=== PATIENT | male | born 1960 | race Caucasian/White ===

== ENCOUNTER 2017-04-22 19:34 | Inpatient (IN) | payer SELFPAY ==
[~2017-04-22] VITALS: Ht 188 cm; Wt 75.2 kg
[2017-04-22 19:36] VITALS: BP 164/85; PULSE 80; RESP 16; TEMP 98.5; O2SAT 98
--- NOTE | 2017-04-22 20:12 | PD ---
HPI Chief Complaint: Psychiatric Symptoms Time Seen by Provider: 19:48 Travel History International Travel<30 days: No Contact w/Intl Traveler<30days: No Traveled to known affect area: No History of Present Illness HPI Patient is a 56-year-old male presenting voluntarily to the emergency department for psychiatric evaluation. Patient states she's been feeling more depressed for the last several weeks secondary to his brother passing away in February and another brother who is incarcerated. Patient states she's been feeling suicidal since yesterday. He reports 2 previous suicide attempts or overdose, once he took 100 aspirin tablets and another time he overdosed on his depression medication. He is not currently on any medications. He denies any hallucinations or homicidal ideations. There are no alleviating factors. Symptoms are exacerbated due to stressors. No Physical complaints at this time. PFSH Past Medical History Arthritis: Yes Asthma: Yes Bipolar Disorder: Yes Anxiety: Yes Depression: Yes Cardiovascular Problems: Yes (hx tumor ) Chest Pain: Yes COPD: Yes Hepatitis: Yes Hypertension: Yes Psychiatric: Yes (BIPOLAR) Tetanus Vaccination: Unknown Influenza Vaccination: No Past Surgical History Cardiac Surgery: Yes (TUMOR REMOVAL FROM HEART) Coronary Artery Bypass Graft: No Family History Family Myocardial Infarction: Yes (grandfather) Social History Alcohol Use: Yes Tobacco Use: Yes (1-1.5PPD) Substance Use: Yes (MARIJUANA) Allergies-Medications (Allergen,Severity, Reaction): Coded Allergies: acetaminophen (Unverified Allergy, Intermediate, SYNCOPY, 04/22/17) oxycodone (Unverified Allergy, Intermediate, SYNCOPY, 04/22/17) Reported Meds & Prescriptions Reported Meds & Active Scripts Active No Active Prescriptions or Reported Medications Review of Systems Except as stated in HPI: all other systems reviewed are Neg Psychiatric: Positive: Depression, Suicidal Ideations, No: Substance Abuse Physical Exam Narrative GENERAL: Well kept, well-nourished, well-developed alert male. Presenting in no acute distress. SKIN: Warm and dry. HEAD: Atraumatic. Normocephalic. EYES: Pupils equal and round. No scleral icterus. No injection or drainage. ENT: No nasal bleeding or discharge. Mucous membranes pink and moist. NECK: Trachea midline. No JVD. CARDIOVASCULAR: Regular rate and rhythm. RESPIRATORY: No accessory muscle use. Clear to auscultation. Breath sounds equal bilaterally. GASTROINTESTINAL: Abdomen soft, non-tender, nondistended. Hepatic and splenic margins not palpable. MUSCULOSKELETAL: Extremities without clubbing, cyanosis, or edema. No obvious deformities. NEUROLOGICAL: Awake and alert. No obvious cranial nerve deficits. Motor grossly within normal limits. Five out of 5 muscle strength in the arms and legs. Normal speech. PSYCHIATRIC: Depressed mood and affect; insight and judgment normal. Data Data Last Documented VS Vital Signs Date Time Temp Pulse Resp B/P (MAP) Pulse Ox O2 Delivery O2 Flow Rate FiO2 04/22/17 19:36 98.5 80 16 164/85 (111) 98 Orders Orders Complete Blood Count With Diff (04/22/17 19:48) Comprehensive Metabolic Panel (04/22/17 19:48) Thyroid Stimulating Hormone (04/22/17 19:48) Urinalysis - C+S If Indicated (04/22/17 19:48) Psych Screen (04/22/17 19:48) Drug Screen, Random Urine (04/22/17 19:48) Alcohol (Ethanol) (04/22/17 19:48) Salicylates (Aspirin) (04/22/17 19:48) Tylenol (Acetaminophen) (04/22/17 19:48) Labs Laboratory Tests Test 04/22/17 20:35 04/22/17 20:38 White Blood Count 11.6 TH/MM3 Red Blood Count 4.75 MIL/MM3 Hemoglobin 14.9 GM/DL Hematocrit 44.0 % Mean Corpuscular Volume 92.6 FL Mean Corpuscular Hemoglobin 31.3 PG Mean Corpuscular Hemoglobin Concent 33.8 % Red Cell Distribution Width 13.0 % Platelet Count 256 TH/MM3 Mean Platelet Volume 6.9 FL Neutrophils (%) (Auto) 68.8 % Lymphocytes (%) (Auto) 19.0 % Monocytes (%) (Auto) 9.7 % Eosinophils (%) (Auto) 1.6 % Basophils (%) (Auto) 0.9 % Neutrophils # (Auto) 8.0 TH/MM3 Lymphocytes # (Auto) 2.2 TH/MM3 Monocytes # (Auto) 1.1 TH/MM3 Eosinophils # (Auto) 0.2 TH/MM3 Basophils # (Auto) 0.1 TH/MM3 CBC Comment DIFF FINAL Differential Comment Blood Urea Nitrogen 17 MG/DL Creatinine 1.20 MG/DL Random Glucose 81 MG/DL Total Protein 8.2 GM/DL Albumin 4.2 GM/DL Calcium Level 9.2 MG/DL Alkaline Phosphatase 82 U/L Aspartate Amino Transf (AST/SGOT) 17 U/L Alanine Aminotransferase (ALT/SGPT) 19 U/L Total Bilirubin 0.9 MG/DL Sodium Level 135 MEQ/L Potassium Level 4.1 MEQ/L Chloride Level 99 MEQ/L Carbon Dioxide Level 27.5 MEQ/L Anion Gap 9 MEQ/L Estimat Glomerular Filtration Rate 63 ML/MIN Thyroid Stimulating Hormone 3rd Gen 1.750 uIU/ML Salicylates Level 2.6 MG/DL Acetaminophen Level LESS THAN 2.0 MCG/ML Ethyl Alcohol Level LESS THAN 3 MG/DL Urine Color ORANGE Urine Turbidity HAZY Urine pH 6.0 Urine Specific [place] 1.034 Urine Protein 30 mg/dL Urine Glucose (UA) NEG mg/dL Urine Ketones TRACE mg/dL Urine Occult Blood NEG Urine Nitrite NEG Urine Bilirubin NEG Urine Urobilinogen 4.0 MG/DL Urine Leukocyte Esterase NEG Urine RBC 8 /hpf Urine WBC 4 /hpf Urine Bacteria RARE /hpf Urine Hyaline Casts 46 /lpf Urine Mucus MANY /lpf Microscopic Urinalysis Comment CULT NOT INDICATED Urine Opiates Screen NEG Urine Barbiturates Screen NEG Urine Amphetamines Screen NEG Urine Benzodiazepines Screen NEG Urine Cocaine Screen NEG Urine Cannabinoids Screen NEG MDM Medical Decision Making Medical Screen Exam Complete: Yes Emergency Medical Condition: Yes Medical Record Reviewed: Yes Interpretation(s) Vital Signs Date Time Temp Pulse Resp B/P (MAP) Pulse Ox O2 Delivery O2 Flow Rate FiO2 04/22/17 19:36 98.5 80 16 164/85 (323) 98 Differential Diagnosis Depression versus suicidal ideations versus mood disorder versus substance abuse versus other Narrative Course Patient is a 56-year-old male presented voluntarily for psychiatric evaluation. Patient's vital signs are stable, he is well-appearing although depressed. Mental health screening discussed with the patient. Psychiatric screen ordered. Labs reviewed, no acute findings identified. Patient's medically cleared for psychiatric evaluation. Diagnosis Primary Impression: Medical clearance for psychiatric admission Scripts No Active Prescriptions or Reported Meds Condition: Stable Sheila Romero Apr 22, 2017 20:12
[2017-04-22 21:01] LABS: BASOPHIL # 0.1 TH/MM3 (0-0.2); BASOPHIL % 0.9 % (0.0-2.0); EOSINOPHIL # 0.2 TH/MM3 (0-0.4); EOSINOPHIL % 1.6 % (0.0-4.0); HEMOGLOBIN 14.9 GM/DL (13.0-17.0); LYMPHOCYTE # 2.2 TH/MM3 (1.0-4.8); MEAN CELL VOLUME 92.6 FL (80.0-100.0); MEAN CORPUSCULAR HEMOGLOBIN 31.3 PG (27.0-34.0); MEAN CORPUSCULAR HGB CONC 33.8 % (32.0-36.0); MEAN PLATELET VOLUME 6.9 FL (7.0-11.0); MONO % 9.7 % (0.0-8.0); MONOCYTE # 1.1 TH/MM3 (0-0.9); NEUT % 68.8 % (16.0-70.0); PLATELET COUNT 256 TH/MM3 (150-450); RED BLOOD COUNT 4.75 MIL/MM3 (4.50-5.90); WHITE BLOOD COUNT 11.6 TH/MM3 (4.0-11.0)
[2017-04-22 21:05] LABS: BLOOD, URINE NEG (NEG); GLUCOSE,URINE NEG (NEG); HYALINE CAST, URINE 46 /lpf (RARE); KETONE, URINE TRACE mg/dL (NEG); MUCUS URINE MANY /lpf (OCC); NITRITE,URINE NEG (NEG); URINE COLOR ORANGE (YELLW/STRAW); URINE LEUKOCYTE ESTERASE NEG (NEG)
[2017-04-22 21:07] LABS: BILIRUBIN, URINE NEG (NEG)
[2017-04-22 21:08] LABS: BACTERIA, URINE RARE /hpf
[2017-04-22 21:14] LABS: ACETAMINOPHEN LESS THAN 2.0 MCG/ML (10.0-30.0); ALBUMIN 4.2 GM/DL (3.4-5.0); ALT (GPT) 19 U/L (12-78); AST (GOT) 17 U/L (15-37); BICARBONATE 27.5 MEQ/L (21.0-32.0); BLOOD UREA NITROGEN 17 MG/DL (7-18); CALCIUM 9.2 MG/DL (8.5-10.1); CHLORIDE 99 MEQ/L (98-107); GLOMERULAR FILTRATION RATE 63 ML/MIN (>89); GLUCOSE,RANDOM 81 MG/DL (74-106); SODIUM (NA) 135 MEQ/L (136-145)
[2017-04-22 21:16] LABS: ALKALINE PHOSPHATASE 82 U/L (45-117); TOTAL BILIRUBIN ADULT 0.9 MG/DL (0.2-1.0); TOTAL PROTEIN 8.2 GM/DL (6.4-8.2)
[2017-04-23] VITALS (7 sets, daily range): BP systolic 107–159; BP diastolic 56–82; PULSE 52–69; RESP 18–20; TEMP 97.6–99.1; O2SAT 97–99
[2017-04-23] MEDS ORDERED: NICOTINE 21 MG/24 HR PATCH T-DERMAL ONE (15:00)
[2017-04-23] MEDS ORDERED: LORazepam 2 MG/ML VIAL IM PRN (22:45)
[2017-04-23] MEDS ORDERED: LORazepam 1 MG TAB PO PRN (22:45)
[2017-04-23] MEDS ORDERED: diphenhydrAMINE HCL 50 MG/ML VIAL - HS PRN IM (22:45)
[2017-04-23] MEDS ORDERED: MAGNESIUM HYDROXIDE SUSP 30 ML CUP PO PRN (22:45)
[2017-04-23] MEDS ORDERED: diphenhydrAMINE HCL 50 MG CAP - HS PRN PO (22:45)
[2017-04-23] MEDS ORDERED: ALUMINUM/MAGNESIUM/SIMETH 30 ML CUP PO PRN (22:45)
[2017-04-23] MEDS: REMOVE OLD NICOTINE PATCH T-DERMAL SCH (23:08)
[2017-04-24] MEDS: NICOTINE 21 MG/24 HR PATCH T-DERMAL SCH (09:00)
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
[2017-04-24 11:18] LABS: BICARBONATE 27.9 MEQ/L (21.0-32.0); BLOOD UREA NITROGEN 13 MG/DL (7-18); CALCIUM 9.1 MG/DL (8.5-10.1); CHLORIDE 103 MEQ/L (98-107); CREATININE 0.92 MG/DL (0.60-1.30); GLOMERULAR FILTRATION RATE 85 ML/MIN (>89); GLUCOSE,RANDOM 99 MG/DL (74-106); SODIUM (NA) 137 MEQ/L (136-145)
[2017-04-24 11:19] LABS: CHOLESTEROL 127 MG/DL (120-200)
[2017-04-24 11:21] LABS: CHOLESTEROL/ HDL RATIO 3.19 RATIO; HDL CHOLESTEROL 39.7 MG/DL (40.0-60.0); LDL CHOLESTEROL 69 MG/DL (0-99); TRIGLYCERIDES 93 MG/DL (42-150)
[2017-04-24 14:24] LABS: AUTOMATED NEUTROPHIL # 3.4 TH/MM3 (1.8-7.7); BASOPHIL # 0.1 TH/MM3 (0-0.2); BASOPHIL % 1.3 % (0.0-2.0); EOSINOPHIL # 0.1 TH/MM3 (0-0.4); EOSINOPHIL % 2.2 % (0.0-4.0); HEMATOCRIT 39.2 % (39.0-51.0); HEMOGLOBIN 13.6 GM/DL (13.0-17.0); LYMPH % 25.3 % (9.0-44.0); LYMPHOCYTE # 1.5 TH/MM3 (1.0-4.8); MEAN CELL VOLUME 92.6 FL (80.0-100.0); MEAN CORPUSCULAR HEMOGLOBIN 32.1 PG (27.0-34.0); MEAN CORPUSCULAR HGB CONC 34.6 % (32.0-36.0); MEAN PLATELET VOLUME 7.3 FL (7.0-11.0); MONO % 11.7 % (0.0-8.0); MONOCYTE # 0.7 TH/MM3 (0-0.9); NEUT % 59.5 % (16.0-70.0); PLATELET COUNT 205 TH/MM3 (150-450); RED BLOOD COUNT 4.23 MIL/MM3 (4.50-5.90); RED CELL DISTRIBUTION WIDTH 12.6 % (11.6-17.2); WHITE BLOOD COUNT 5.7 TH/MM3 (4.0-11.0)
[2017-04-24 17:25] LABS: HEMOGLOBIN A1C 5.4 % (4.3-6.0)
[2017-04-24] MEDS: lamoTRIgine 25 MG TAB PO SCH (20:33)
[2017-04-25 05:38] VITALS: BP 122/58; PULSE 60; RESP 16; TEMP 97.9; O2SAT 96
[2017-04-25] MEDS: NICOTINE 21 MG/24 HR PATCH T-DERMAL SCH (08:41)
--- NOTE | 2017-04-25 12:03 | HHI.PYPN ---
Subjective Chief Complaint: Depression, SI Remarks Patient seen and examined with nurse and nurse practitioner. Chart reviewed. Case discussed with nursing staff. Case discussed in treatment team. On my examination today, the patient reports ongoing low mood. He reports intermittent suicidal ideation. No reported urge to hurt himself on the inpatient psychiatric unit. No psychotic symptoms. Denies side effects from medication. No physical complaints. Review of Systems Except as stated in HPI: all other systems reviewed are Neg Mental Status Examination Appearance: Appropriate Consciousness: Alert Orientation: x4 Motor Activity: Other (no motor abnormalities noted.) Speech: Unremarkable Language: Adequate Fund of Knowledge: Adequate Attention and Concentration: Adequate Memory: Unremarkable Mood: Sad Affect: Sad Thought Process & Associations: Intact, Logical, Linear Thought Content: Appropriate Hallucination Type: None Delusion Type: None Suicidal Ideation: Yes (intermittent) Suicidal Plan: No Suicidal Intention: No (no urge to hurt self on inpatient unit) Homicidal Ideation: No Homicidal Plan: No Homicidal Intention: No Insight: Adequate Judgment: Adequate Mental Status Exam Remarks No visible rash Results Labs Labs reviewed. Vitals/IOs Vital Signs Date Time Temp Pulse Resp B/P (MAP) Pulse Ox O2 Delivery O2 Flow Rate FiO2 04/25/17 05:38 97.9 60 16 122/58 (79) 96 04/23/17 22:02 Room Air Intake and Output 04/25/17 04/25/17 04/26/17 08:00 16:00 00:00 Intake Total 240 ml Balance 240 ml Assessment & Plan Problem List: (1) Bipolar disorder, current episode depressed, severe, without psychotic features ICD Codes: F31.4 - Bipolar disorder, current episode depressed, severe, without psychotic features Assessment & Plan Add Latuda 40 mg with dinner with plans to titrate to effect for mood stabilization. R/B/A for this medication discussed with patient. Continue Lamictal as ordered with plans for ongoing slow titration. Patient wishes to continue Lamictal in hopes that it will provide adequate mood stabilization once titrated to adequate dose, and I have added the Latuda to try to obtain more rapid mood stabilization than is afforded by the slow titration schedule of Lamictal. Continue to monitor on the inpatient unit. Occupational therapy consult. Continue other medications and care as ordered. Justification for Cont. Inpt. Med changes. Monitoring for impairment in safety. Risk for decompensation in less restrictive environment. Discharge Planning Pending psychiatric stabilization Request HC Surrog/Guard Advoc?: No Dayton Villegas MD Apr 25, 2017 12:03
--- NOTE | 2017-04-25 16:23 | PD.TTN ---
Patient Problems 1. Discharge planning 2. Medication compliance 3. Knowledge deficit 4. Lack of coping skills Progress Toward Goals Provider Present: Dr. Selam Villegas Provider Input: 04/25/17 patient is started on Lamictal and medications are being titrated Psychiatric Counselors Present: Rocio Calabrese LCSW Psych Therapist Input: 04/25/17 met with to discuss goals of hospitalization and outpatient follow up- he elaborated on his needs of stabilization and not having housing he appears in need for support system and re-intrerated he can return to another state or can be referred to [facility] outpatient and homeless coalition, he appears very depressed and was encouraged to seek outpatient counseling once discharged Group Spec/RT/OT/DELUCA Present: Shauna Tai, ARMINDA Group Spec/RT/OT/DELUCA Input: 04/25/17 new to Rt Rocio Calabrese LCSW Apr 25, 2017 16:23
[2017-04-25] MEDS: LURASIDONE 40 MG TAB PO SCH (17:43)
[2017-04-25 18:27] VITALS: BP 138/67; PULSE 54; RESP 17; TEMP 98.3; O2SAT 100
[2017-04-25] MEDS: REMOVE OLD NICOTINE PATCH T-DERMAL SCH (21:00)
[2017-04-25] MEDS: lamoTRIgine 25 MG TAB PO SCH (21:13)
[2017-04-26 06:00] VITALS: BP 115/57; PULSE 53; RESP 16; TEMP 98.1; O2SAT 97
[2017-04-26] MEDS: NICOTINE 21 MG/24 HR PATCH T-DERMAL SCH (08:48)
--- NOTE | 2017-04-26 11:25 | HHI.PYPN ---
Subjective Chief Complaint: Depression, SI Remarks Patient seen and examined with nurse and nurse practitioner. Chart reviewed. Case discussed with nursing staff. No behavioral issues overnight. Latuda was not administered yesterday afternoon as EKG had not been completed. On my examination today, the patient remains depressed. He does not verbalize any suicidal ideation. He is discussing discharge planning options with the counselor. No side effects from Lamictal. No physical complaints. Review of Systems Except as stated in HPI: all other systems reviewed are Neg Mental Status Examination Appearance: Appropriate Consciousness: Alert Orientation: x4 Motor Activity: Other (no motoric abnormalities noted) Speech: Unremarkable Language: Adequate Fund of Knowledge: Adequate Attention and Concentration: Adequate Memory: Unremarkable Mood: Other (reports mood remains depressed) Affect: Appropriate (fairly full and reactive today) Thought Process & Associations: Intact, Logical, Linear Thought Content: Appropriate Hallucination Type: None Delusion Type: None Suicidal Ideation: No Suicidal Plan: No Suicidal Intention: No Homicidal Ideation: No Homicidal Plan: No Homicidal Intention: No Insight: Adequate Judgment: Adequate Mental Status Exam Remarks No visible rash Results Labs Labs reviewed. No new labs. EKG read as sinus bradycardia with a QTcH of 401 ms, not prolonged. Vitals/IOs Vital Signs Date Time Temp Pulse Resp B/P (MAP) Pulse Ox O2 Delivery O2 Flow Rate FiO2 04/26/17 06:00 98.1 53 16 115/57 (76) 97 04/23/17 22:02 Room Air Assessment & Plan Problem List: (1) Bipolar disorder, current episode depressed, severe, without psychotic features ICD Codes: F31.4 - Bipolar disorder, current episode depressed, severe, without psychotic features Assessment & Plan Initiate Latuda this afternoon with dinner. Continue Lamictal as ordered with plans for ongoing slow titration. Continue to monitor on the inpatient unit. Continue other medications and care as ordered. Justification for Cont. Inpt. Monitoring for impairment in safety, none noted. Ongoing medication adjustments. Discharge Planning Anticipate discharge by the end of the week. Case discussed with counselor. Request HC Surrog/Guard Advoc?: No Dayton Villegas MD Apr 26, 2017 11:25
[2017-04-26 16:45] VITALS: BP 176/84; PULSE 61; RESP 18; TEMP 97.8; O2SAT 100
[2017-04-26] MEDS: LURASIDONE 40 MG TAB PO SCH (17:37)
[2017-04-26] MEDS: REMOVE OLD NICOTINE PATCH T-DERMAL SCH (21:00)
[2017-04-26] MEDS: lamoTRIgine 25 MG TAB PO SCH (21:21)
--- NOTE | 2017-04-26 21:50 | EKG ---
Date Performed: 04/25/2017 Time Performed: 17:39:01 PTAGE: 56 years EKG: SINUS BRADYCARDIA MODERATE T-WAVE ABNORMALITY, CONSIDER INFERIOR ISCHEMIA ABNORMAL ECG PREVIOUS TRACING : 01/19/2016 18.24 Since the prior tracing, there has been no significant lang DOCTOR: Bala Still Interpretating Date/Time 04/26/2017 21:48:57
[2017-04-27 05:52] VITALS: BP 131/68; PULSE 50; RESP 16; TEMP 98; O2SAT 97
[2017-04-27] MEDS: NICOTINE 21 MG/24 HR PATCH T-DERMAL SCH (09:05)
--- NOTE | 2017-04-27 12:27 | HHI.PYPN ---
Subjective Chief Complaint: Depression, SI Remarks Patient seen and examined with nurse. Chart reviewed. Case discussed with nursing staff. On my examination today, the patient says that he remains depressed. No SI voiced. Hasn't noticed any benefit from addition of Latuda yet but denies any side effects. He did note some "spots" on his forearms, but when I examine his forearms, he cannot find the spots he had seen earlier, and I can appreciate no rash whatsoever. No other physical complaints. Agreeable to ongoing titration of Latuda. Review of Systems Except as stated in HPI: all other systems reviewed are Neg Mental Status Examination Appearance: Appropriate Consciousness: Alert Orientation: x4 Motor Activity: Other (no hand tremor, no cogwheeling, no other motor abnormalities noted.) Speech: Unremarkable Language: Adequate Fund of Knowledge: Adequate Attention and Concentration: Adequate Memory: Unremarkable Mood: Other (reports remains depressed) Affect: Appropriate (full and reactive) Thought Process & Associations: Intact, Logical, Linear Thought Content: Appropriate Hallucination Type: None Delusion Type: None Suicidal Ideation: No Suicidal Plan: No Suicidal Intention: No Homicidal Ideation: No Homicidal Plan: No Homicidal Intention: No Insight: Adequate Judgment: Adequate Mental Status Exam Remarks No visible rash. No rash on forearms. Results Labs Labs reviewed. No new labs. Vitals/IOs Vital Signs Date Time Temp Pulse Resp B/P (MAP) Pulse Ox O2 Delivery O2 Flow Rate FiO2 04/27/17 05:52 98.0 50 16 131/68 (89) 97 04/23/17 22:02 Room Air Assessment & Plan Problem List: (1) Bipolar disorder, current episode depressed, severe, without psychotic features ICD Codes: F31.4 - Bipolar disorder, current episode depressed, severe, without psychotic features Assessment & Plan Titrate Latuda to 60 mg daily with dinner for additional mood stabilization. Continue Lamictal as ordered with plans for ongoing slow titration. Continue to monitor on the inpatient unit. I encourage participation in groups and unit activities. Continue other care as ordered. Justification for Cont. Inpt. Medication changes. Risk for decompensation in less restrictive environment. Discharge Planning Pending psychiatric stabilization. Request HC Surrog/Guard Advoc?: No Dayton Villegas MD Apr 27, 2017 12:27
[2017-04-27] MEDS ORDERED: PILL SPLITTER OTHER PRN (12:30)
[2017-04-27 17:14] VITALS: BP 138/80; PULSE 57; RESP 16; TEMP 98.3; O2SAT 99
[2017-04-27] MEDS: LURASIDONE 40 MG TAB PO SCH (17:47)
[2017-04-27] MEDS: lamoTRIgine 25 MG TAB PO SCH (20:20)
[2017-04-27] MEDS: REMOVE OLD NICOTINE PATCH T-DERMAL SCH (20:20)
[2017-04-28 06:00] VITALS: BP 123/64; PULSE 68; RESP 16; TEMP 97.2; O2SAT 98
[2017-04-28] MEDS: NICOTINE 21 MG/24 HR PATCH T-DERMAL SCH (10:28)
--- NOTE | 2017-04-28 12:18 | HHI.PYPN ---
Subjective Chief Complaint: Depression, SI Remarks Patient seen and examined with nurse. Chart reviewed. Case discussed with nursing staff. Case discussed in treatment team. On my examination today, the patient complains of some restless legs at night and wonders if this might be due to the titration of Latuda. We discuss possible options for management of this issue, including switching to a different psychotropic, but the patient wishes to continue with the Latuda for now. Remains depressed. Continues to endorse vague suicidal ideation without specific plan or intent. No reported urge to hurt himself on the inpatient psychiatric unit. No other side effects from medications. No complaints of rash. Does complain of some chronic musculoskeletal pain and requests ibuprofen. No other physical complaints. Review of Systems Except as stated in HPI: all other systems reviewed are Neg Mental Status Examination Appearance: Appropriate Consciousness: Alert Orientation: x4 Motor Activity: Other (no motor abnormalities noted.) Speech: Unremarkable Language: Adequate Fund of Knowledge: Adequate Attention and Concentration: Adequate Memory: Unremarkable Mood: Other (remains somewhat depressed) Affect: Appropriate Thought Process & Associations: Intact, Logical, Linear Thought Content: Appropriate Hallucination Type: None Delusion Type: None Suicidal Ideation: Yes (vague) Suicidal Plan: No Suicidal Intention: No (no reported urge to hurt himself on the inpatient psychiatric unit) Homicidal Ideation: No Homicidal Plan: No Homicidal Intention: No Insight: Adequate Judgment: Adequate Mental Status Exam Remarks No visible rash Results Labs Labs reviewed. No new labs. Vitals/IOs Vital Signs Date Time Temp Pulse Resp B/P (MAP) Pulse Ox O2 Delivery O2 Flow Rate FiO2 04/28/17 06:00 97.2 68 16 123/64 (83) 98 Intake and Output 04/28/17 04/28/17 04/28/17 07:59 15:59 23:59 Intake Total 240 ml 240 ml Balance 240 ml 240 ml Assessment & Plan Problem List: (1) Bipolar disorder, current episode depressed, severe, without psychotic features ICD Codes: F31.4 - Bipolar disorder, current episode depressed, severe, without psychotic features Assessment & Plan Titrate Lamictal over the weekend to 50 mg at bedtime for mood stabilization. Continue Latuda as ordered per patient preference. Ibuprofen as needed added. Continue to monitor on the inpatient unit. Continue other medications and care as ordered. Justification for Cont. Inpt. Med changes. Risk for decompensation in less restrictive environment. Monitoring for impairment in safety, none noted. Discharge Planning Pending psychiatric stabilization. Request HC Surrog/Guard Advoc?: No Dayton Villegas MD Apr 28, 2017 12:18
[2017-04-28] MEDS ORDERED: PADIMATE (CHAPSTICK) 4.5 GM TUBE TOPICAL PRN (14:30)
--- NOTE | 2017-04-28 14:38 | PD.TTN ---
Patient Problems 1. Discharge planning 2. Medication compliance 3. Knowledge deficit 4. Lack of coping skills Progress Toward Goals Provider Present: Dr. Selam Villegas Provider Input: 04/28/17 anticipated discharge Monday04/25/17 patient is started on Lamictal and medications are being titrated Psychiatric Counselors Present: Rocio Calabrese LCSW Psych Therapist Input: 04/28/17 patient is still stating he is unsure where to go and what to do but is aware he needs to work on his stabiliy - he is considering to return home and asked counselor to call his brother in [place], left a Vm with brother at [phone] 04/25/17 met with to discuss goals of hospitalization and outpatient follow up- he elaborated on his needs of stabilization and not having housing he appears in need for support system and re-intrerated he can return to another state or can be referred to [facility] outpatient and homeless coalition, he appears very depressed and was encouraged to seek outpatient counseling once discharged Group Spec/RT/OT/DELUCA Present: Shauna Tai, GPS Group Spec/RT/OT/DELUCA Input: 04/28/17patient keeps to self and does not attend groups 04/25/17 new to Rt Rocio Calabrese LCSW Apr 28, 2017 14:38
[2017-04-28] MEDS: IBUPROFEN 600 MG TAB PO PRN (14:56)
[2017-04-28 18:00] VITALS: BP 176/86; PULSE 66; RESP 15; TEMP 97.4; O2SAT 100
[2017-04-28] MEDS: LURASIDONE 40 MG TAB PO SCH (18:39)
[2017-04-28] MEDS: REMOVE OLD NICOTINE PATCH T-DERMAL SCH (21:00)
[2017-04-28] MEDS: lamoTRIgine 25 MG TAB PO SCH (23:00)
[2017-04-28] MEDS: hydrOXYzine HCL 50 MG TAB PO PRN (23:02)
[2017-04-29 06:20] VITALS: BP 123/63; PULSE 51; RESP 18; TEMP 97.6; O2SAT 96
[2017-04-29] MEDS: NICOTINE 21 MG/24 HR PATCH T-DERMAL SCH (09:17)
--- NOTE | 2017-04-29 13:42 | HHI.PYPN ---
Subjective Chief Complaint: Depression, SI Remarks Patient was seen and case discussed with nursing. Patient describes his mood today as a 6 out of 10. He knows chronic suicidal ideation for the past number of years and his last suicide attempt 2006. He is somewhat superficial and vague concerning his suicidal thoughts today. He describes knowledge many plans over the years that he denies intense though admits to ideation. He is tolerating his medications well. Denies any auditory visual hallucinations. Continues to complain of "restless legs" Mental Status Examination Appearance: Appropriate Consciousness: Alert Orientation: x4 Motor Activity: Other (no motor abnormalities noted.) Speech: Unremarkable Language: Adequate Fund of Knowledge: Adequate Attention and Concentration: Adequate Memory: Unremarkable Mood: Other (remains somewhat depressed) Affect: Appropriate Thought Process & Associations: Intact, Logical, Linear Thought Content: Appropriate Hallucination Type: None Delusion Type: None Suicidal Ideation: Yes (vague) Suicidal Plan: No Suicidal Intention: No (no reported urge to hurt himself on the inpatient psychiatric unit) Homicidal Ideation: No Homicidal Plan: No Homicidal Intention: No Insight: Adequate Judgment: Adequate Results Vitals/IOs Vital Signs Date Time Temp Pulse Resp B/P (MAP) Pulse Ox O2 Delivery O2 Flow Rate FiO2 04/29/17 06:20 97.6 51 18 123/63 (83) 96 Assessment & Plan Problem List: (1) Bipolar disorder, current episode depressed, severe, without psychotic features ICD Codes: F31.4 - Bipolar disorder, current episode depressed, severe, without psychotic features Assessment & Plan Add Cogentin 1 mg by mouth twice a day Justification for Cont. Inpt. Patient would decompensate in a less restrictive setting Request HC Surrog/Guard Advoc?: No Kavin Hoang DO Apr 29, 2017 13:42
[2017-04-29] MEDS: BENZTROPINE MESYLATE 1 MG TAB PO SCH ×2 (15:03→21:43)
[2017-04-29] MEDS: hydrOXYzine HCL 50 MG TAB PO PRN (15:34)
[2017-04-29] MEDS: LURASIDONE 40 MG TAB PO SCH (18:06)
[2017-04-29 18:30] VITALS: BP 154/87; PULSE 58; RESP 20; TEMP 98.2; O2SAT 99
[2017-04-29] MEDS: REMOVE OLD NICOTINE PATCH T-DERMAL SCH (21:00)
[2017-04-29] MEDS: lamoTRIgine 25 MG TAB PO SCH (21:43)
[2017-04-30 05:47] VITALS: BP 173/72; PULSE 83; RESP 16; TEMP 98; O2SAT 96
[2017-04-30 07:15] VITALS: BP 110/66
[2017-04-30] MEDS: NICOTINE 21 MG/24 HR PATCH T-DERMAL SCH (10:23)
[2017-04-30] MEDS: BENZTROPINE MESYLATE 1 MG TAB PO SCH ×2 (10:23→21:47)
[2017-04-30] MEDS: hydrOXYzine HCL 50 MG TAB PO PRN (10:57)
[2017-04-30] MEDS: IBUPROFEN 600 MG TAB PO PRN (10:57)
--- NOTE | 2017-04-30 12:19 | HHI.PYPN ---
Subjective Chief Complaint: Depression, SI Remarks Patient was seen and case discussed with nursing. Patient continues c/o of vague SI with no intent or plan. He is focused on homelessness and other life stressors. There is concern for malingering. Tolerating medication well. Social on the unit. Mental Status Examination Appearance: Appropriate Consciousness: Alert Orientation: x4 Motor Activity: Other (no motor abnormalities noted.) Speech: Unremarkable Language: Adequate Fund of Knowledge: Adequate Attention and Concentration: Adequate Memory: Unremarkable Mood: Other (remains somewhat depressed) Affect: Appropriate Thought Process & Associations: Intact, Logical, Linear Thought Content: Appropriate Hallucination Type: None Delusion Type: None Suicidal Ideation: Yes (vague) Suicidal Plan: No Suicidal Intention: No (no reported urge to hurt himself on the inpatient psychiatric unit) Homicidal Ideation: No Homicidal Plan: No Homicidal Intention: No Insight: Adequate Judgment: Adequate Results Vitals/IOs Vital Signs Date Time Temp Pulse Resp B/P (MAP) Pulse Ox O2 Delivery O2 Flow Rate FiO2 04/30/17 07:15 110/66 (81) 04/30/17 05:47 98.0 83 16 96 Intake and Output 04/30/17 04/30/17 05/01/17 08:00 16:00 00:00 Intake Total 240 ml Balance 240 ml Assessment & Plan Problem List: (1) Bipolar disorder, current episode depressed, severe, without psychotic features ICD Codes: F31.4 - Bipolar disorder, current episode depressed, severe, without psychotic features Assessment & Plan Continue current treatment plan Justification for Cont. Inpt. Patient will decompensate in a less restrictive setting Request HC Surrog/Guard Advoc?: No Kavin Hoang DO Apr 30, 2017 12:19
[2017-04-30] MEDS: LURASIDONE 40 MG TAB PO SCH (17:00)
[2017-04-30 18:52] VITALS: BP 137/63; PULSE 61; RESP 16; TEMP 98.1; O2SAT 100
[2017-04-30] MEDS: REMOVE OLD NICOTINE PATCH T-DERMAL SCH (21:00)
[2017-04-30] MEDS: lamoTRIgine 25 MG TAB PO SCH (21:47)
[2017-05-01 06:01] VITALS: BP 121/63; PULSE 59; RESP 16; TEMP 97.6; O2SAT 100
--- NOTE | 2017-05-01 08:32 | HHI.PYPN ---
Subjective Chief Complaint: Depression, SI Remarks Patient seen and examined with nurse. Chart reviewed. Case discussed with nursing staff. On my examination today, the patient insists that he feels "the same" (i.e. depressed), although he does describe himself as "more relaxed." His affect seems bright, full and reactive without any sign of dysphoria. He denies any audiovisual hallucinations. He endorses some ongoing suicidal ideation, but I share Dr. Hoang's concerns for malingering, and in context this report of SI seems fairly manipulative with goal of remaining on the inpatient unit. Continues to complain of some restless legs from Latuda. He reports that he has not seen much benefit from this agent and would like to discontinue this agent. We discuss adding a different antipsychotic or other agent, but he is not interested in doing so at this time. He does find the Atarax helpful for his anxiety and is receptive to adding a scheduled dose of this agent. Denies other side effects from medications. No physical complaints. Review of Systems Except as stated in HPI: all other systems reviewed are Neg Mental Status Examination Appearance: Appropriate Consciousness: Alert Orientation: x4 Motor Activity: Other (no abnormal motor movements noted) Speech: Unremarkable Language: Adequate Fund of Knowledge: Adequate Attention and Concentration: Adequate Memory: Unremarkable Mood: Other (continues to complain of some low mood) Affect: Appropriate (full and reactive with no evidence of dysphoria or depression) Thought Process & Associations: Intact, Logical, Linear Thought Content: Appropriate Hallucination Type: None Delusion Type: None Suicidal Ideation: Yes (vague) Suicidal Plan: No Suicidal Intention: No (no urge to hurt self on inpatient unit) Homicidal Ideation: No Homicidal Plan: No Homicidal Intention: No Insight: Adequate Judgment: Adequate Mental Status Exam Remarks No visible rash Results Labs Labs reviewed. Vitals/IOs Vital Signs Date Time Temp Pulse Resp B/P (MAP) Pulse Ox O2 Delivery O2 Flow Rate FiO2 05/01/17 06:01 97.6 59 16 121/63 (82) 100 Intake and Output 05/01/17 05/01/17 05/02/17 08:00 16:00 00:00 Intake Total 240 ml Balance 240 ml Assessment & Plan Problem List: (1) Adjustment disorder with depressed mood ICD Codes: F43.21 - Adjustment disorder with depressed mood (2) Malingering ICD Codes: Z76.5 - Malingerer [conscious simulation] Assessment & Plan As noted above, the patient's reports of suicidal ideation are suspected to be manipulative with secondary gain of remaining on the inpatient unit as he is otherwise without stable housing. We have observed the patient for over a week at this point with absolutely no evidence of any suicidality or violence on the inpatient unit. Consequently, I suspect that the patient is approaching maximal benefit from this inpatient hospital stay. I will discontinue the Latuda as the patient asks and will schedule some Atarax, 50 mg twice daily. Continue Lamictal as ordered with plans for ongoing slow titration of this agent. Continue to monitor on the inpatient unit. Continue other medications and care as ordered. Justification for Cont. Inpt. Med changes Discharge Planning Anticipate discharge within the next 1-2 days. Request HC Surrog/Guard Advoc?: No Dayton Villegas MD May 01, 2017 08:32
[2017-05-01] MEDS: NICOTINE 21 MG/24 HR PATCH T-DERMAL SCH (09:00)
[2017-05-01] MEDS: hydrOXYzine HCL 50 MG TAB PO PRN (12:45)
[2017-05-01 18:00] VITALS: BP 174/89; PULSE 72; RESP 18; TEMP 97.7; O2SAT 100
[2017-05-01 18:23] VITALS: BP 185/86
[2017-05-01] MEDS ORDERED: cloNIDine HCL 0.1 MG TAB PO PRN (19:15)
[2017-05-01] MEDS: REMOVE OLD NICOTINE PATCH T-DERMAL SCH (21:00)
[2017-05-01] MEDS: hydrOXYzine HCL 50 MG TAB PO SCH (22:53)
[2017-05-01] MEDS: lamoTRIgine 25 MG TAB PO SCH (22:53)
[2017-05-01] MEDS: IBUPROFEN 600 MG TAB PO PRN (22:56)
[2017-05-02 07:15] VITALS: BP 129/71; PULSE 53
[2017-05-02 08:00] VITALS: BP 121/66; PULSE 55; RESP 18; TEMP 97.3; O2SAT 100
[2017-05-02] MEDS: NICOTINE 21 MG/24 HR PATCH T-DERMAL SCH (09:35)
[2017-05-02] MEDS: hydrOXYzine HCL 50 MG TAB PO SCH ×2 (09:35→09:36)
[2017-05-02] MEDS: IBUPROFEN 600 MG TAB PO PRN (13:18)
--- NOTE | 2017-05-02 13:56 | HHI.PYPN ---
Subjective Chief Complaint: Depression, SI Remarks Patient seen and examined. Chart reviewed. Episode of elevated blood pressure overnight. 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 Blood pressure has normalized this morning. On my examination today, the patient continues to complain of feeling "the same " although he does not verbalize any suicidal or homicidal ideation. Affect seems brighter and more hopeful. He is beginning to discuss his plans for after discharge, including finding work, and he even seems to be somewhat looking forward to the prospect of discharge. Denies side effects from medications. No physical complaints. Review of Systems Except as stated in HPI: all other systems reviewed are Neg Mental Status Examination Appearance: Appropriate Consciousness: Alert Orientation: x4 Motor Activity: Other (no abnormal motor movements noted) Speech: Unremarkable Language: Adequate Fund of Knowledge: Adequate Attention and Concentration: Adequate Memory: Unremarkable Mood: Other ("the same") Affect: Appropriate (full and reactive) Thought Process & Associations: Intact, Logical, Linear Thought Content: Appropriate Hallucination Type: None Delusion Type: None Suicidal Ideation: No Suicidal Plan: No Suicidal Intention: No Homicidal Ideation: No Homicidal Plan: No Homicidal Intention: No Insight: Adequate Judgment: Adequate Mental Status Exam Remarks No visible rash. Results Labs Labs reviewed. Vitals/IOs Vital Signs Date Time Temp Pulse Resp B/P (MAP) Pulse Ox O2 Delivery O2 Flow Rate FiO2 05/02/17 08:00 97.3 55 18 121/66 (84) 100 Intake and Output 05/02/17 05/02/17 05/03/17 08:00 16:00 00:00 Intake Total 360 ml Balance 360 ml Assessment & Plan Problem List: (1) Adjustment disorder with depressed mood ICD Codes: F43.21 - Adjustment disorder with depressed mood (2) Malingering ICD Codes: Z76.5 - Malingerer [conscious simulation] Assessment & Plan Continue psychotropics as ordered. Await hospitalist consultation. So long as the patient can be medically cleared, I will plan for discharge tomorrow, Monday. I have discussed this plan with the patient, and he is agreeable to discharge Monday. Continue other medications and care as ordered. Justification for Cont. Inpt. Complicating condition, awaiting medical clearance Discharge Planning Anticipate discharge tomorrow, Monday Request HC Surrog/Guard Advoc?: No Chaiffetz,Dayton B. MD May 02, 2017 13:56
--- NOTE | 2017-05-02 14:10 | PD.TTN ---
Patient Problems 1. Discharge planning 2. Medication compliance 3. Knowledge deficit 4. Lack of coping skills Progress Toward Goals Provider Present: Dr. Selam Villegas Provider Input: 05/02/17 will assess patient today and possibly discharge today if not tomorrow 04/28/17 anticipated discharge Monday04/25/17 patient is started on Lamictal and medications are being titrated Psychiatric Counselors Present: Rocio Calabrese LCSW Psych Therapist Input: 05/02/17 patient remains hopeless and helpless and worthless feeling, he accepts his homeless situation and follow up with [facility] to be arranged once meds adjusted and doctor discharges patient either today or tomorrow 04/28/17 patient is still stating he is unsure where to go and what to do but is aware he needs to work on his stabiliy - he is considering to return home and asked counselor to call his brother in [place], left a Vm with brother at [phone] 04/25/17 met with to discuss goals of hospitalization and outpatient follow up- he elaborated on his needs of stabilization and not having housing he appears in need for support system and re-intrerated he can return to another state or can be referred to [facility] outpatient and homeless coalition, he appears very depressed and was encouraged to seek outpatient counseling once discharged Group Spec/RT/OT/DELUCA Present: Shauna Tai, ARMINDA Group Spec/RT/OT/DELUCA Input: 05/02/17 does not attend groups 04/28/17patient keeps to self and does not attend groups 04/25/17 new to Rt Rocio Calabrese LCSW May 02, 2017 14:10
[2017-05-02] MEDS ORDERED: HYDROCHLOROTHIAZIDE 12.5 MG CAP PO ONE (16:30)
[2017-05-02 17:59] VITALS: BP 160/80; PULSE 54; RESP 17; TEMP 98.2; O2SAT 98
--- NOTE | 2017-05-02 18:20 | PD.CONS ---
[facility] By [facility] Physician No Primary Care Physician Diagnoses: History of Present Illness 56-year-old male with a history of hypertension, depression, currently here for suicidal ideation. He is seen today for episodes of hypertension with systolic blood pressures up to 190s yesterday. Patient does report dull headaches at that time. Headaches have resolved with resolution of blood pressure. No focal symptoms. Denies any chest pain or shortness breath. Denies any nausea or vomiting. Denies fevers or chills. Patient does remember being on lisinopril in the past, as well as another medication. Review of Systems Except as stated in HPI: all other systems reviewed are Neg Past Family Social History Allergies: Coded Allergies: acetaminophen (Unverified Allergy, Intermediate, SYNCOPY, 04/22/17) oxycodone (Unverified Allergy, Intermediate, SYNCOPY, 04/22/17) Past Medical History History of hypertension, however patient does not know the names of medications he used to be on. 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 Reported Medications Current Medications Medications (Trade) Dose Ordered Sig/Sonam Route Start Time Stop Time Status Last Admin (Benadryl) 50 mg HS PRN PO 04/23/17 22:45 04/30/17 21:53 (Benadryl Inj) 50 mg HS PRN IM 04/23/17 22:45 (Milk Of Magnesia Liq) 30 ml DAILY PRN PO 04/23/17 22:45 (Mag-Al Plus Susp Liq) 30 ml Q6H PRN PO 04/23/17 22:45 (Atarax) 50 mg Q6H PRN PO 04/24/17 09:15 05/01/17 12:45 (Pill Splitter) 1 ea UNSCH PRN OTHER 04/27/17 12:30 (LaMICtal) 50 mg Taper HS PO 04/28/17 21:00 05/10/17 20:59 05/01/17 22:53 (Motrin) 600 mg Q8H PRN PO 04/28/17 13:45 05/02/17 13:18 (Chapstick) 1 applic UNSCH PRN TOPICAL 04/28/17 14:30 (Atarax) 50 mg BID PO 05/01/17 21:00 05/02/17 09:36 (Catapres) 0.1 mg Q8H PRN PO 05/01/17 19:15 05/01/17 19:20 (Microzide) 12.5 mg DAILY PO 05/03/17 09:00 Family History Review the with the patient and found to be currently noncontributory. Social History One pack per day for 40 years.. Patient reports heavy drinking, however will not quantify. Denies any history of withdrawals. Warts occasional marijuana use. Physical Exam Vital Signs Vital Signs Date Time Temp Pulse Resp B/P (MAP) Pulse Ox O2 Delivery O2 Flow Rate FiO2 05/02/17 17:59 98.2 54 17 160/80 (106) 98 05/02/17 08:00 97.3 55 18 121/66 (84) 100 05/02/17 07:15 53 129/71 (90) 05/01/17 18:23 185/86 (119) Physical Exam GENERAL: This is a well-nourished, well-developed patient, in no apparent distress.aaox3 SKIN: No rashes, ecchymoses or lesions. Cool and dry. HEAD: Atraumatic. Normocephalic. No temporal or scalp tenderness. EYES: Pupils equal round and reactive. Extraocular motions intact. No scleral icterus. No injection or drainage. ENT: Nose without bleeding, purulent drainage or septal hematoma. Throat without erythema, tonsillar hypertrophy or exudate. Uvula midline. Airway patent. NECK: Trachea midline. No JVD or lymphadenopathy. Supple, nontender, no meningeal signs. CARDIOVASCULAR: Regular rate and rhythm without murmurs, gallops, or rubs. RESPIRATORY: Clear to auscultation. Breath sounds equal bilaterally. No wheezes , rales, or rhonchi. GASTROINTESTINAL: Abdomen soft, non-tender, nondistended. No hepato-splenomegaly , or palpable masses. No guarding. MUSCULOSKELETAL: Extremities without clubbing, cyanosis, or edema. No joint tenderness, effusion, or edema noted. No calf tenderness. Negative Homans sign bilaterally. NEUROLOGICAL: Awake and alert. Cranial nerves II through XII intact. Motor and sensory grossly within normal limits. Five out of 5 muscle strength in all muscle groups. Normal speech. Assessment and Plan Assessment and Plan //Accelerated hypertension with blood pressures up to the 190s systolic. Improved with clonidine. Patient is for a slender, and would question the size of cough. Subsequent blood pressures are all normal. We'll start patient on low-dose Hydrochlorothiazide, lisinopril. Continue to monitor closely. //Pulmonary nodule seen on CT chest in 2016. Patient is chronic smoker, thus these should be followed up. Patient denies any respiratory illnesses or weight loss. Would recommend follow-up CT as outpatient. Marshall Torres MD May 02, 2017 18:20
[2017-05-02] MEDS ORDERED: LISINOPRIL 5 MG TAB PO ONE (19:00)
[2017-05-02] MEDS: lamoTRIgine 25 MG TAB PO SCH (21:40)
[2017-05-02] MEDS: hydrOXYzine HCL 50 MG TAB PO PRN (21:41)
[2017-05-03 06:07] VITALS: BP 102/57; PULSE 48; RESP 18; TEMP 97.6; O2SAT 97
[2017-05-03 08:58] VITALS: BP 112/64
[2017-05-03] MEDS ORDERED: LISINOPRIL 5 MG TAB PO SCH (09:00)
[2017-05-03] MEDS ORDERED: HYDROCHLOROTHIAZIDE 12.5 MG CAP PO SCH (09:00)
[2017-05-03] MEDS: hydrOXYzine HCL 50 MG TAB PO SCH (09:01)
[2017-05-03] MEDS ORDERED: LAMO25 PO (11:19)
[2017-05-03] MEDS ORDERED: HYDR12.57 PO (11:19)
[2017-05-03] MEDS ORDERED: HYDR50TA94 PO (11:19)
[2017-05-03] MEDS ORDERED: LISI-519 PO (11:19)
--- NOTE | 2017-05-03 11:19 | HHI.DS ---
Psychiatry Discharge Summary Inpatient Psychiatric care?: Yes Advance Directive: No Mental Health AdvanceDirective: No Health Care Proxy: No Admission Admission Date Apr 23, 2017 at 22:29 Admission Diagnosis: (1) Bipolar disorder, current episode depressed, severe, without psychotic features ICD Code: F31.4 - Bipolar disorder, current episode depressed, severe, without psychotic features Brief History Mr. Haines is a 56-year-old male with a reported history of bipolar disorder who presented to the emergency department complaining of depression and suicidal ideation. Stressors include passing of a brother late last year as well as another brother who is going to care home, reportedly on manslaughter charges. Reviewing the electronic medical record, I note the patient was admitted under Dr. Talavera in 2015 and stabilized on Abilify at that time. Patient seen and examined with nurse. Chart reviewed. Case discussed with nursing staff. On my examination today, the patient reports that he has been feeling depressed for the last several weeks at least. He endorses poor sleep and low energy. Appetite is fair. Some anhedonia noted. The patient has been contemplating suicide with plan to jump in front of a car. He also says that he has been thinking about obtaining assisted suicide. He does contract for safety while he is on the unit. In addition to low mood the patient endorses anxiety, chiefly generalized in nature. He has no hypomanic or manic symptoms presently but does endorse a history of what sound like hypomanic episodes in the past. He denies any audiovisual hallucinations. I can elicit no delusional material. The remainder of the psychiatric ROS is negative. The patient has no physical complaints presently. Past psychiatric history: The patient reports a history of bipolar disorder. He notes that he has tried several psychotropic medications in the past including Risperdal, Abilify, Cymbalta and Zoloft but none have been satisfactory in providing lasting improvement in mood. He would like to try something new. He is not currently under the care of a psychiatrist. He reports that he was admitted to [facility] about a year ago. He endorses previous suicide attempts by overdose on aspirin and another overdose on prescription medications, the most recent of these being 8 years ago. Tobacco Use In Past 30 Days: 5 or More Cigarettes/Day Alcohol Use: Monthly or Less Hospital Course Patient was admitted to a locked, inpatient psychiatric unit. A general medical consultation was obtained. Appropriate precautions were in place throughout patient's hospital stay. Patient was seen and examined on the unit by psychiatry and also visited by counselor. Psychotropic medications were adjusted. There was no evidence of any suicidality or homicidality on the inpatient unit despite extended observation on the inpatient unit. The patient remained in good behavioral control and was compliant with medications. He was noted to be quite focused on remaining on the inpatient unit and bargained for additional inpatient days. He also issued veiled, and at times more overt threats to harm himself after discharge and in context these threats are felt to represent malingering for custodial. On the day of discharge: Patient seen and examined with nurse. Chart reviewed. Case discussed with nursing staff. No evidence of any behavioral issues overnight. Patient denied any suicidal ideation per nursing notes. Case discussed with counselor. On my examination today, the patient does not presently describe any suicidal or homicidal ideation. He contracts for safety on the inpatient unit. He continues to issue veiled, manipulative threats couched in language of "I don't know what I would do" if he were discharged. He does stop short of issuing any clear suicidal threats in the discharge scenario. He does bargain for additional inpatient days. Besides some ongoing complaints of dysphoria, I can elicit no depressive or hypomanic/manic symptoms. He has no audiovisual hallucinations, nor is there any delusional material. There is no evidence of any impairment in reality construction. He denies side effects from medications. Suicide and violence risk on day of discharge suggest lower imminent risk from ana rosa stephanie mental illness, and the patient's level of function is adequate for outpatient care. The patient is judged to have obtained maximal benefit from this inpatient psychiatric hospital stay. The patient is clearly malingering for custodial at this point, and I do think it is likely as that after discharge he will make statements or even make some sort of gesture in order to get readmitted to the inpatient unit. However, this is not a valid reason to keep the patient on the inpatient unit now, and in fact it would be counter-therapeutic to give in to these manipulations. I have strongly recommended against making any gesture, lest he inadvertently seriously injure himself in the process, and I have suggested to him that he should instead simply to present to the ED with suicidal ideation. I have provided the patient with the smallest quantity of medication by prescription consistent with good care to minimize the risk of retributive overdose. I have counseled the patient to return to the psychiatric emergency room in the event that he experiences suicidal or homicidal ideation or other serious psychiatric symptoms as part of general safety plan. Psychiatric follow-up as arranged by counselor. Patient is also to follow-up with primary care. Results Blood Pressure 112 / 64 Vital Signs Date Time Temp Pulse Resp B/P (MAP) Pulse Ox O2 Delivery O2 Flow Rate FiO2 05/03/17 08:58 112/64 (80) 05/03/17 06:07 97.6 48 18 97 Laboratory Results Test 04/24/17 10:20 Cholesterol Level 127 MG/DL (120-200) HDL Cholesterol 39.7 MG/DL (40.0-60.0) Hemoglobin A1c 5.4 % (4.3-6.0) LDL Cholesterol 69 MG/DL (0-99) Triglycerides Level 93 MG/DL (42-150) Summary of Procedures None done Imaging None done Pending results at discharge: No Medications # of Antipsychotic meds at D/C: 0 Approp Antipsych med options 1 - Minimum of three failed multiple trials of monotherapy. 2 - Documented plan to taper to monotherapy due to previous use of multiple meds OR cross-taper in progress at D/C. 3 - Documentation of augmentation of Clozapine. 4 - Justification other than those listed in allowable values 1-3, document here : Discharge Discharge Date: May 03, 2017 Discharge Diagnosis: (1) Malingering Diagnosis: Principal ICD Code: Z76.5 - Malingerer [conscious simulation] Pt Condition on Discharge: Fair Discharge Disposition: Discharge Home Discharge Instructions Diet Instructions: As Tolerated, No Restrictions Activities you can perform: Weight Bearing as Ivelisse Scheduled Appointment: as per counselor's notes New Orders: BASIC METABOLIC PROF - [address] THORAX W/O CONTRAST (CHEST) - 1 Month New Medications: Hydrochlorothiazide (Hydrochlorothiazide) 12.5 Mg Cap 12.5 MG PO DAILY for Blood Pressure Management for 3 Days, #3 CAP 4 Refills Hydroxyzine HCl (Hydroxyzine HCl) 50 Mg Tab 50 MG PO BID for Mental Health for 3 Days, #6 TAB 4 Refills Lamotrigine (Lamictal) 25 Mg Tab 50 MG PO HS for Mental Health for 3 Days, TAB 4 Refills Lisinopril (Lisinopril) 5 Mg Tab 2.5 MG PO DAILY for Blood Pressure Management for 3 Days, #2 TAB 4 Refills Discharge Time > 30 minutes Mental Status Examination Appearance: Appropriate Consciousness: Alert Orientation: x4 Motor Activity: Normal gait, Other (no motor abnormalities noted) Speech: Unremarkable Language: Adequate Fund of Knowledge: Adequate Attention and Concentration: Adequate Memory: Unremarkable Mood: Other (mildly dysphoric) Affect: Appropriate (full and reactive and inconsistent with stated mood) Thought Process & Associations: Intact, Logical, Linear Thought Content: Appropriate Hallucination Type: None (no AVH and does not appear internally stimulated) Delusion Type: None (no delusions) Suicidal Ideation: No (Issues vague threats as noted above. No current SI.) Suicidal Plan: No Suicidal Intention: No Homicidal Ideation: No Homicidal Plan: No Homicidal Intention: No Insight: Adequate Judgment: Adequate Mental Status Exam Remarks No visible rash. Discharge/Advance Care Plan Health Problems: (1) Adjustment disorder with depressed mood (2) Malingering Goals to promote your health * To prevent worsening of your condition and complications * To maintain your health at the optimal level Directions to meet your goals Take your medications as prescribed Follow your dietary instruction Follow activity as directed Keep your appointments as scheduled Take your immunizations and boosters as scheduled If your symptoms worsen call your PCP, if no PCP go to Urgent Care Center or Emergency Room For 03/10 questions related to your inpatient stay or results of tests pending at discharge, please contact Dr. Dayton Villegas at Smoking is Dangerous to Your Health. Avoid second hand smoking Dayton Villegas MD May 03, 2017 11:19
== END 2017-05-03 14:10 | disposition home or self-care (01) | DRG 885 ==
LOC: NEPD 19:34 → NEDA 04-23 22:29 → H270 04-23 22:47 → H260 04-24 12:25
PROVIDERS: ADMIT Psychiatry & Neurology Psychiatry; ATTEND Psychiatry & Neurology Psychiatry
DX: F31.4 Bipolar disorder, current episode depressed, severe, without psychotic features (principal); I10 Essential (primary) hypertension; F12.90 Cannabis use, unspecified, uncomplicated; Z76.5 Malingerer [conscious simulation]; Z59.0 Homelessness; F17.210 Nicotine dependence, cigarettes, uncomplicated
CPT/HCPCS: 80048; 80053; 80061; 80307; 81001; 83036; 84443; 85025; 93005; Q0163